=== PATIENT | male | born 1980 | race Two or more races ===

== ENCOUNTER 2016-11-30 20:51 | Emergency (ER) | payer OTHER, BC ==
[2016-11-30 21:12] VITALS: BP 115/66
--- NOTE | 2016-11-30 22:03 | EDM.PDOC ---
ED HPI GENERAL MEDICAL PROBLEM - General Chief Complaint: Bite:Animal, Insect Stated Complaint: dog bite to left leg Time Seen by Provider: 11/30/16 21:35 Source of Information: Reports: Patient, Significant Other History Limitations: Reports: Language Barrier ( translates) - History of Present Illness INITIAL COMMENTS - FREE TEXT/NARRATIVE: 36-year-old male presents for evaluation and treatment of a dog bite to the posterior left lower leg. Reportedly the patient was at work today. He states that another employee had a dog that was off leash. States that he walked by the dog and when he turned and started walking back the dog bit him in the back of his left leg. The dogbite went through his FR clothing and caused an abrasion with minor blood loss to dusty posterior left leg. Patient is up-to-date on his tetanus. Last tetanus was in 2011. The patient does not know the medical collections specialist of the dog personally. he does not know the rabies status of the dog. He knows of a mutual associate with the dog's medical collections specialist. He feels that he will be able to find out the dog's rabies status tomorrow. Patient is a diabetic type II. Onset: Today Location: Reports: Lower Extremity, Left Other Treatments EXPLOSIVE EXPERT: shower Left Leg Pain Score (Numeric/FACES): 7 - Related Data Allergies Allergy/AdvReac Type Severity Reaction Status Date / Time No Known Allergies Allergy Verified 08/28/16 08:12 Home Meds: Home Meds metFORMIN [Glucophage] 1 tab PO BID 12/10/14 [History] Dapagliflozin Propanediol [Farxiga] 1 tab PO DAILY 07/25/16 [History] Glimepiride [Glimepiride] 1 tab PO DAILY 07/25/16 [History] Lisinopril [Lisinopril] 1 tab PO DAILY 07/25/16 [History] Simvastatin [Simvastatin] 1 tab PO DAILY 07/25/16 [History] Terbinafine [LamISIL] 1 tab PO DAILY 07/25/16 [History] Past Medical History Cardiovascular History: Reports: High Cholesterol Endocrine/Metabolic History: Reports: Diabetes, Type II - Past Surgical History HEENT Surgical History: Reports: Cataract Surgery Social & Family History - Tobacco Use Smoking Status *Q: Never Smoker Second Hand Smoke Exposure: No - Caffeine Use Caffeine Use: Reports: Coffee, Energy Drinks, Tea - Alcohol Use Days Per Week of Alcohol Use: 0 - Recreational Drug Use Recreational Drug Use: No ED ROS GENERAL - Review of Systems Review Of Systems: ROS reveals no pertinent complaints other than HPI. ED EXAM, ANIMAL BITE - Physical Exam Exam: See Below Exam Limited By: No Limitations General Appearance: Alert, WD/WN, No Apparent Distress Respiratory/Chest: No Respiratory Distress Neurological: Alert, Oriented, Normal Cognition Psychiatric: Normal Affect, Normal Mood Skin Exam: Normal Color, Warm/Dry, Ecchymosis (approximately 2.5cm in diameter abrasion with surrounding ecchymosis to the left posterior thight) Course - Vital Signs Last Recorded V/S: Last Vital Signs Temp 37.0 C 11/30/16 21:08 Pulse 84 11/30/16 21:08 Resp 20 11/30/16 21:08 BP 115/66 11/30/16 21:08 Pulse Ox 98 11/30/16 21:08 - Re-Assessments/Exams Free Text/Narrative Re-Assessment/Exam: 11/30/16 22:03 Will start augmentin for the dog bite. Discussed rabies vaccination with the patient and his . I feel it is most appropriate they find out the dogs rabies vaccination status as the likelihood of contacting rabies from a domesticated dog is very low. I did offer them rabies vaccination. They elect to talk with the dogs medical collections specialist about rabies vaccination status first and then get the vaccination at a later time if needed. They were educated to get the vaccination as soon as possible if needed. Departure - Departure Time of Disposition: 22:05 Disposition: Home, Self-Care 01 Condition: good Clinical Impression: Abrasion, Dog bite of extremity - Discharge Information Instructions: Animal Bite, [id number], Abrasion, [id number] Referrals: Jo Ann Whalen PA [Primary Care Provider] - Forms: ED Department Discharge Additional Instructions: Augmentin 875-125mg PO bid x 10 days. Take medication with food. Recommend yogurt or a probiotic if you develop upset stomach, diarrhea or nausea. Rx given through [facility]. Find out the status of the dogs rabies vaccination. If vaccinated no further treatment warranted. If the dog is not vaccinated, recommend the dog be watched or quarantined x 2 weeks and if the dog becomes ill you should receive the rabies vaccination. See your PCP or return to the ER as soon as possible for rabies vaccination if needed. Wash the area with gentle soap and water twice a day. Keep wound covered. Please return to the ER should your symptoms change or worsen.
== END 2016-11-30 22:26 | disposition home or self-care (01) ==
LOC: JD.ED 20:51
DX: S71.152A Open bite, left thigh, initial encounter (principal); S70.12XA Contusion of left thigh, initial encounter; E78.00 Pure hypercholesterolemia, unspecified; E11.9 Type 2 diabetes mellitus without complications; Z79.899 Other long term (current) drug therapy; Z98.49 Cataract extraction status, unspecified eye; Z79.84 Long term (current) use of oral hypoglycemic drugs; W54.0XXA Bitten by dog, initial encounter
CPT/HCPCS: 99283